=== PATIENT | male | born 1960 | race Caucasian/White ===

== ENCOUNTER → 2023-08-17 10:00 | Outpatient (REF) | payer BC, SELFPAY ==
[2023-08-17 12:58] LABS: INR 1.94
== END ==
LOC: HWLAB 10:00
PROVIDERS: ATTENDING PHYSICIAN Internal Medicine Cardiovascular Disease; FAMILY PHYSICIAN Family Medicine
DX: I48.91 Unspecified atrial fibrillation (principal)
CPT/HCPCS: 36415; 85610

== ENCOUNTER → 2023-10-19 08:48 | Outpatient (REF) | payer BC, SELFPAY ==
[2023-10-19 12:06] LABS: INR 2.28
== END ==
LOC: HWLAB 08:48
PROVIDERS: ATTENDING PHYSICIAN Internal Medicine Cardiovascular Disease; FAMILY PHYSICIAN Family Medicine
DX: I48.91 Unspecified atrial fibrillation (principal)
CPT/HCPCS: 36415; 85610

== ENCOUNTER → 2023-12-18 08:44 | Outpatient (REF) | payer BC, SELFPAY ==
[2023-12-18 11:50] LABS: % Basophils 0.5 % (0-2); % Eosinophils 1.9 % (0-6); % Immature Granulocytes 0.5 % (0-0.5); % Lymphocytes 20.7 % (20.5-51.1); % Monocytes 11.2 % (1.7-9.3); % Neutrophils 65.2 % (42.2-75.2); Absolute Eosinophils 0.1 10^3/uL (0-0.7); Absolute Lymphocytes 0.9 10^3/uL (1.2-3.4); Absolute Monocytes 0.5 10^3/uL (0.1-0.6); Absolute Neutrophils 2.8 10^3/uL (1.4-6.5); Hematocrit 47.6 % (39.0-52.0); Mean Corp Hgb Conc. 33.6 g/dL (33.0-37.0); Mean Corpuscular Hgb 30.5 pg (27.0-31.0); Mean Corpuscular Volume 90.8 fL (80.0-94.0); Mean Platelet Volume 11.8 fL (7.4-10.4); Nucleated Red Blood Cells % 0 % (-); Platelet Count 144 10^3/uL (130-400); Red Blood Cell Count 5.24 10^6/uL (4.70-6.10); Red Cell Dist. Width 13.9 % (11.5-14.5); White Blood Cell Count 4.2 10^3/uL (4.8-10.8)
[2023-12-18 11:57] LABS: INR 2.39; PT 25.9 Sec (11.4-14.6)
[2023-12-18 12:17] LABS: ALT (SGPT) 23 U/L (0-50); AST (SGOT) 26 U/L (17-59); Albumin 4.6 g/dl (3.5-5.0); Alkaline Phosphatase 91 U/L (38-126); Blood Urea Nitrogen 15 mg/dl (9-20); Calcium 9.7 mg/dl (8.4-10.2); Carbon Dioxide 30 mmol/L (22-30); Chloride 101 mmol/L (98-107); Glucose 96 mg/dl (70-99); Magnesium 2.2 mg/dl (1.6-2.3); Potassium 4.5 mmol/L (3.5-5.1); Sodium 138 mmol/L (135-145); Total Bilirubin 1.5 mg/dl (0.2-1.3); Total Protein 7.1 g/dl (6.3-8.2); Uric Acid 5.6 mg/dl (3.5-8.5); eGFR > 60.00
[2023-12-18 13:16] LABS: Free T4 1.04 ng/dl (0.78-2.19)
[2023-12-18 13:30] LABS: TSH 1.22 uIU/ml (0.47-4.68)
[2023-12-18 13:49] LABS: Vitamin B12 205 pg/ml (239-931)
[2023-12-18 13:56] LABS: Glycohemoglobin (HgbA1c) 5.8 % (4.0-5.6)
[2023-12-21 01:04] LABS: Lipoprotein a (Lp a) 21 mg/dL (<=29)
[2023-12-21 02:02] LABS: Insulin, Random 11 uIU/mL
== END ==
LOC: HWLAB 08:44
PROVIDERS: ATTENDING PHYSICIAN Nurse Practitioner; FAMILY PHYSICIAN Family Medicine; REFERRING PHYSICIAN Internal Medicine Cardiovascular Disease
DX: E66.01 Morbid (severe) obesity due to excess calories (principal); I48.21 Permanent atrial fibrillation; E78.2 Mixed hyperlipidemia; E88.810 Metabolic syndrome; Z13.1 Encounter for screening for diabetes mellitus; R20.0 Anesthesia of skin
CPT/HCPCS: 36415; 80053; 80061; 82607; 83036; 83525; 83695; 83704; 83735; 84439; 84443; 84550; 85025; 85610

== ENCOUNTER → 2024-02-16 08:23 | Outpatient (REF) | payer BC, SELFPAY ==
[2024-02-16 09:42] LABS: INR 2.51
== END ==
LOC: HWLAB 08:23
PROVIDERS: ATTENDING PHYSICIAN Internal Medicine Cardiovascular Disease; FAMILY PHYSICIAN Family Medicine
DX: I48.91 Unspecified atrial fibrillation (principal)
CPT/HCPCS: 36415; 85610

== ENCOUNTER → 2024-04-20 12:27 | Outpatient (REF) | payer BC, SELFPAY ==
[2024-04-20 16:12] LABS: INR 1.57; PT 19.3 Sec (11.4-14.6)
== END ==
LOC: HWLAB 12:27
PROVIDERS: ATTENDING PHYSICIAN Internal Medicine Cardiovascular Disease; FAMILY PHYSICIAN Family Medicine
DX: I48.91 Unspecified atrial fibrillation (principal)
CPT/HCPCS: 36415; 85610

== ENCOUNTER → 2024-05-02 07:32 | Outpatient (REF) | payer BC, SELFPAY ==
[2024-05-02 09:53] LABS: INR 2.25; PT 24.9 Sec (11.4-14.6)
== END ==
LOC: HWLAB 07:32
PROVIDERS: ATTENDING PHYSICIAN Internal Medicine Cardiovascular Disease; FAMILY PHYSICIAN Family Medicine
DX: I48.91 Unspecified atrial fibrillation (principal)
CPT/HCPCS: 36415; 85610

== ENCOUNTER → 2024-05-23 10:23 | Outpatient (REF) | payer BC, SELFPAY ==
[2024-05-23 11:41] LABS: INR 2.23; PT 24.8 Sec (11.4-14.6)
== END ==
LOC: HWLAB 10:23
PROVIDERS: ATTENDING PHYSICIAN Internal Medicine Cardiovascular Disease; FAMILY PHYSICIAN Family Medicine
DX: I48.91 Unspecified atrial fibrillation (principal)
CPT/HCPCS: 36415; 85610

== ENCOUNTER → 2024-06-13 09:32 | Outpatient (REF) | payer BC, SELFPAY ==
[2024-06-13 12:41] LABS: PT 23.7 Sec (11.4-14.6)
== END ==
LOC: HWLAB 09:32
PROVIDERS: ATTENDING PHYSICIAN Internal Medicine Cardiovascular Disease; FAMILY PHYSICIAN Family Medicine
DX: I48.91 Unspecified atrial fibrillation (principal)
CPT/HCPCS: 36415; 85610

== ENCOUNTER → 2024-07-25 10:31 | Outpatient (REF) | payer BC, SELFPAY ==
[2024-07-25 12:16] LABS: INR 1.89; PT 21.8 Sec (11.4-14.6)
== END ==
LOC: HWLAB 10:31
PROVIDERS: ATTENDING PHYSICIAN Internal Medicine Cardiovascular Disease; FAMILY PHYSICIAN Family Medicine
DX: I48.91 Unspecified atrial fibrillation (principal)
CPT/HCPCS: 36415; 85610

== ENCOUNTER → 2024-08-15 10:23 | Outpatient (REF) | payer BC, SELFPAY ==
[2024-08-15 12:36] LABS: INR 1.87; PT 21.7 Sec (11.4-14.6)
== END ==
LOC: HWLAB 10:23
PROVIDERS: ATTENDING PHYSICIAN Nurse Practitioner; FAMILY PHYSICIAN Internal Medicine; REFERRING PHYSICIAN Internal Medicine Cardiovascular Disease
DX: I48.91 Unspecified atrial fibrillation (principal); E66.01 Morbid (severe) obesity due to excess calories; I48.21 Permanent atrial fibrillation; E78.2 Mixed hyperlipidemia; E88.810 Metabolic syndrome; R73.03 Prediabetes
CPT/HCPCS: 36415; 85610

== ENCOUNTER → 2024-08-17 08:28 | Outpatient (REF) | payer BC, SELFPAY ==
[2024-08-17 09:38] LABS: % Basophils 0.4 % (0-2); % Eosinophils 2.2 % (0-6); % Immature Granulocytes 0.2 % (0-0.5); % Lymphocytes 27.8 % (20.5-51.1); % Monocytes 12.5 % (1.7-9.3); % Neutrophils 56.9 % (42.2-75.2); Absolute Eosinophils 0.1 10^3/uL (0-0.7); Absolute Lymphocytes 1.3 10^3/uL (1.2-3.4); Absolute Monocytes 0.6 10^3/uL (0.1-0.6); Absolute Neutrophils 2.6 10^3/uL (1.4-6.5); Hematocrit 47.5 % (39.0-52.0); Hemoglobin 16.1 g/dL (13.0-18.0); Mean Corp Hgb Conc. 33.9 g/dL (33.0-37.0); Mean Corpuscular Hgb 31.1 pg (27.0-31.0); Mean Corpuscular Volume 91.7 fL (80.0-94.0); Mean Platelet Volume 11.2 fL (7.4-10.4); Nucleated Red Blood Cells % 0 % (-); Platelet Count 149 10^3/uL (130-400); Red Blood Cell Count 5.18 10^6/uL (4.70-6.10); Red Cell Dist. Width 13.8 % (11.5-14.5); White Blood Cell Count 4.6 10^3/uL (4.8-10.8)
[2024-08-17 10:41] LABS: ALT (SGPT) 30 U/L (0-50); AST (SGOT) 26 U/L (17-59); Albumin 4.8 g/dl (3.5-5.0); Alkaline Phosphatase 80 U/L (38-126); Blood Urea Nitrogen 27 mg/dl (9-20); Calcium 9.8 mg/dl (8.4-10.2); Carbon Dioxide 27 mmol/L (22-30); Chloride 97 mmol/L (98-107); Glucose 104 mg/dl (70-99); HDL Cholesterol 43 mg/dl; LDL Cholesterol, Calculated 98 mg/dl; Potassium 3.7 mmol/L (3.5-5.1); Sodium 138 mmol/L (135-145); Total Bilirubin 1.4 mg/dl (0.2-1.3); Total Cholesterol 174 mg/dl (50-199); Total Protein 7.3 g/dl (6.3-8.2); Triglyceride 166 mg/dl (10-149); Very Low Density Lipoprotein 33 mg/dl (0-30); eGFR > 60.00
[2024-08-17 11:00] LABS: Free T4 1.13 ng/dl (0.78-2.19)
[2024-08-17 11:14] LABS: TSH 1.38 uIU/ml (0.47-4.68)
[2024-08-17 12:02] LABS: Glycohemoglobin (HgbA1c) 5.8 % (4.0-5.6)
== END ==
LOC: HWLAB 08:28
PROVIDERS: ATTENDING PHYSICIAN Nurse Practitioner; FAMILY PHYSICIAN Family Medicine
DX: E66.01 Morbid (severe) obesity due to excess calories (principal); I48.21 Permanent atrial fibrillation; E78.2 Mixed hyperlipidemia; E88.810 Metabolic syndrome; R73.03 Prediabetes
CPT/HCPCS: 36415; 80053; 80061; 83036; 84439; 84443; 85025

== ENCOUNTER → 2024-09-12 10:45 | Outpatient (REF) | payer BC, SELFPAY ==
[2024-09-12 16:22] LABS: INR 1.94; PT 22.3 Sec (11.4-14.6)
== END ==
LOC: HWLAB 10:45
PROVIDERS: ATTENDING PHYSICIAN Internal Medicine Cardiovascular Disease; FAMILY PHYSICIAN Family Medicine
DX: I48.91 Unspecified atrial fibrillation (principal)
CPT/HCPCS: 36415; 85610

== ENCOUNTER → 2024-11-02 09:29 | Outpatient (REF) | payer BC, SELFPAY ==
[2024-11-02 11:55] LABS: INR 2.09
== END ==
LOC: HWLAB 09:29
PROVIDERS: ATTENDING PHYSICIAN Internal Medicine Cardiovascular Disease; FAMILY PHYSICIAN Family Medicine
DX: I48.91 Unspecified atrial fibrillation (principal)
CPT/HCPCS: 36415; 85610

== ENCOUNTER → 2024-12-29 09:10 | Outpatient (REF) | payer BC, SELFPAY ==
[2024-12-29 12:27] LABS: INR 2.14; PT 24.4 Sec (11.4-14.6)
== END ==
LOC: HWLAB 09:10
PROVIDERS: ATTENDING PHYSICIAN Internal Medicine Cardiovascular Disease; FAMILY PHYSICIAN Family Medicine
DX: I48.91 Unspecified atrial fibrillation (principal)
CPT/HCPCS: 85610

== ENCOUNTER → 2025-02-14 09:13 | Outpatient (REF) | payer BC, SELFPAY ==
[2025-02-14 12:48] LABS: INR 1.74; PT 20.6 Sec (11.4-14.6)
== END ==
LOC: HWLAB 09:13
PROVIDERS: ATTENDING PHYSICIAN Internal Medicine Cardiovascular Disease; FAMILY PHYSICIAN Family Medicine
DX: I48.91 Unspecified atrial fibrillation (principal)
CPT/HCPCS: 36415; 85610

== ENCOUNTER 2025-03-03 14:05 | Emergency (ER) | payer BC, SELFPAY ==
[2025-03-03 14:12] VITALS: BP 100/79
[2025-03-03 14:14] VITALS: BP 100/79
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
[2025-03-03 14:45] LABS: Hematocrit 43.3 % (39.0-52.0); Hemoglobin 15.0 g/dL (13.0-18.0); Mean Corp Hgb Conc. 34.6 g/dL (33.0-37.0); Mean Corpuscular Volume 89.8 fL (80.0-94.0); Nucleated Red Blood Cells % 0 % (-); Platelet Count 135 10^3/uL (130-400); Red Cell Dist. Width 13.9 % (11.5-14.5)
[2025-03-03] MEDS: NSS 500 IV (14:45)
[2025-03-03 14:49] LABS: INR 2.50; PT 27.0 Sec (11.4-14.6)
[2025-03-03 15:06] LABS: Blood Urea Nitrogen 24 mg/dl (9-20); Calcium 8.8 mg/dl (8.4-10.2); Carbon Dioxide 22 mmol/L (22-30); Chloride 105 mmol/L (98-107); Glucose 116 mg/dl (70-99); Sodium 136 mmol/L (135-145); eGFR > 60.00
[2025-03-03 15:15] VITALS: BP 126/78
== END 2025-03-03 15:55 | disposition home or self-care (01) ==
LOC: EMR 14:05
PROVIDERS: Registered Nurse; EMERGENCY PHYSICIAN Emergency Medicine; FAMILY PHYSICIAN Family Medicine
DX: R55 Syncope and collapse (principal); E86.0 Dehydration; I10 Essential (primary) hypertension; E78.00 Pure hypercholesterolemia, unspecified; I48.91 Unspecified atrial fibrillation; M19.90 Unspecified osteoarthritis, unspecified site; Z79.01 Long term (current) use of anticoagulants
CPT/HCPCS: 99283; 96360; 80048; 85025; 85610; 93005

== ENCOUNTER → 2025-04-10 10:09 | Outpatient (REF) | payer BC, SELFPAY ==
[2025-04-10 14:48] LABS: INR 2.03; PT 23.1 Sec (11.4-14.6)
== END ==
LOC: HWLAB 10:09
PROVIDERS: ATTENDING PHYSICIAN Internal Medicine Cardiovascular Disease; FAMILY PHYSICIAN Family Medicine
DX: I48.91 Unspecified atrial fibrillation (principal)
CPT/HCPCS: 36415; 85610